=== PATIENT | female | born 1945 | race Caucasian/White ===

== ENCOUNTER → 2021-11-29 10:52 | Outpatient (CLI) | payer MEDICARE, SELFPAY ==
--- NOTE | ~2021-11-29 | XR_ITS ---
XR hip RT min 2V DATE: 11/29/2021 11:36 INDICATION: Right hip pain TECHNIQUE: AP and lateral views COMPARISON: None FINDINGS: No fracture or dislocation, avascular necrosis or bone destruction. Right hip joint space i s well preserved. The pubic symphysis and included right sacroiliac joint are intact. IMPRESSION: No significant abnormality Reviewed, dictated and finalized at location A. IMPRESSION: No significant abnormality
== END ==
PROVIDERS: PCP Family Medicine; Visit Provider Family Medicine
DX: M25.551 Pain in right hip (principal)
CPT/HCPCS: 73502